=== PATIENT | female | born 1955 | race Caucasian/White ===

== ENCOUNTER → 2017-02-22 | Outpatient (CLI) | payer BC ==
--- NOTE | 2017-02-25 01:10 | DI ---
VENOUS DOPPLER ULTRASOUND OF THE RIGHT LOWER EXTREMITY, 02/22/2017 4:23 PM: Clinical History: Right knee pain Previous Exam: None. Technique: 2D real-time imaging is supplemented with color Doppler ultrasound. Compression and augmen tation maneuvers were performed. The long saphenous vein is normal. There is no evidence of cystic or solid mass within the popli teal fossa. Reading: No evidence of deep venous thrombosis.
== END ==
LOC: US 16:18
PROVIDERS: ATTEND Physician Assistant
DX: M79.661 Pain in right lower leg (principal)
CPT/HCPCS: 93971

== ENCOUNTER → 2017-04-24 | Outpatient (CLI) | payer BC ==
--- NOTE | 2017-04-24 11:46 | DI ---
RIGHT KNEE, 04/24/2017 10:35 AM: Clinical History: Acute right knee pain. Previous Exam: None at this facility. 3 views are submitted. The AP projection is a weightbearing view. There is no acute soft tissue, osse ous, or joint abnormality. Reading: Normal right knee exam.
== END ==
LOC: MOB RAD 10:42
PROVIDERS: ATTEND Nurse Practitioner Family
DX: M25.561 Pain in right knee (principal)
CPT/HCPCS: 73562